=== PATIENT | female | born 1990 | race Asian ===

== ENCOUNTER 2018-01-11 18:35 | Emergency (ER) | payer SELFPAY ==
[2018-01-11 18:39] VITALS: BP 125/66; TEMP 99.2
[2018-01-11 20:04] VITALS: PULSE 86
== END 2018-01-11 20:05 | disposition home or self-care (01) ==
LOC: COL.ER 18:35
DX: M25.531 Pain in right wrist (principal); R06.00 Dyspnea, unspecified; J45.909 Unspecified asthma, uncomplicated; F17.220 Nicotine dependence, chewing tobacco, uncomplicated; X50.3XXA Overexertion from repetitive movements, initial encounter

== ENCOUNTER 2021-02-24 17:50 | Emergency (ER) | payer SELFPAY ==
[~2021-02-24] VITALS: Ht 170.2 cm; Wt 109.1 kg
[2021-02-24 18:19] VITALS: TEMP 97.7
[2021-02-24 19:00] LABS: COLLECTION METHOD CLEAN CATCH
[2021-02-24 19:05] LABS: BASO % 0.4 % (0.0-2.0); EOS # 0.2 (0.0-0.7); EOS % 2.2 % (0-4.0); GRAN # 5.5 (1.4-6.5); HEMATOCRIT 39.9 % (37.0-47.0); HEMOGLOBIN 12.6 g/dl (12.5-16.0); LYMPH # 1.5 (1.2-3.4); LYMPH % 18.7 % (20.0-51.0); MEAN CELL VOLUME 89 fl (80.0-100.0); MEAN CORPUSCULAR HEMOGLOBIN 28 pg (27.0-31.0); MEAN CORPUSCULAR HGB CONC 32 g/dl (33.0-37.0); MEAN PLATELET VOLUME 8.4 fl (7.4-10.4); MONO % 12.6 % (1.7-9.3); PLATELET COUNT 367 K/mm3 (130-400); RED BLOOD COUNT 4.51 M/mm3 (4.10-5.30); REDCELL DISTRIBUTION WIDTH-CV 13.7 % (11.5-14.5)
[2021-02-24 19:19] LABS: PH 5 (5-8); URINE APPEARANCE Turbid; URINE BACTERIA None Seen /hpf; URINE BILIRUBIN Negative (NEGATIVE); URINE BLOOD 3+ (NEGATIVE); URINE COLOR Red; URINE GLUCOSE Negative (NEGATIVE); URINE KETONE Negative (NEGATIVE); URINE LEUKOCYTE ESTERASE Negative (NEGATIVE); URINE NITRATE Positive (NEGATIVE); URINE PROTEIN(semi-quant) 2+ (NEGATIVE); URINE RBC >50 /hpf; URINE UROBILINOGEN Negative (NEGATIVE)
[2021-02-24] MEDS ORDERED: BACTRIM DS 8001 TAB PO (19:47)
[2021-02-24 20:19] VITALS: BP 132/70; PULSE 78
== END 2021-02-24 20:19 | disposition home or self-care (01) ==
LOC: COL.ER 17:50
PROVIDERS: Nurse Practitioner
DX: N39.0 Urinary tract infection, site not specified (principal); N92.0 Excessive and frequent menstruation with regular cycle

== ENCOUNTER 2023-08-20 18:11 | Emergency (ER) | payer SELFPAY ==
[~2023-08-20] VITALS: Ht 167.6 cm; Wt 109.1 kg
[~2023-08-20 18:11] MED LIST: BACTRIM DS 8001 TAB PO
[2023-08-20 18:18] VITALS: TEMP 100.2
[2023-08-20 19:48] LABS: HEMATOCRIT 38.5 % (37.0-47.0); HEMOGLOBIN 12.6 g/dl (12.5-16.0); MEAN CELL VOLUME 86 fl (80.0-100.0); MEAN CORPUSCULAR HEMOGLOBIN 28 pg (27-31); MEAN CORPUSCULAR HGB CONC 33 g/dl (33.0-37.0); MEAN PLATELET VOLUME 9.2 fl (7.4-10.4); PLATELET COUNT 308 K/mm3 (130-400); RED BLOOD COUNT 4.48 M/mm3 (4.10-5.30); REDCELL DISTRIBUTION WIDTH-CV 12.9 % (11.5-14.5)
[2023-08-20 20:15] LABS: BILIRUBIN,TOTAL 0.3 mg/dL (0.2-1.2); CALCIUM 8.5 mg/dL (8.4-10.2); CREATININE, serum 0.7 mg/dL (0.57-1.11); POTASSIUM 3.4 mmol/L (3.5-4.5); TOTAL PROTEIN 8.3 gm/dL (6.2-8.1)
[2023-08-20 20:18] LABS: ANISOCYTOSIS 1+; BAND 21 % (0-10); EOSINOPHIL 2 % (0-4); LYMPHOCYTE 45 % (20.0-51.0); NEUTROPHILS 24 % (42.0-75.2); PLATELET ESTIMATE NORMAL (NORMAL)
[2023-08-20 21:06] VITALS: BP 95/55; PULSE 100
== END 2023-08-20 21:16 | disposition home or self-care (01) ==
LOC: COL.ER 18:11
PROVIDERS: Physician Assistant
DX: R59.0 Localized enlarged lymph nodes (principal); R79.1 Abnormal coagulation profile
CPT/HCPCS: J7030; Q9967